=== PATIENT | female | born 1990 | race Caucasian/White ===

== ENCOUNTER 2016-10-26 18:24 | Emergency (ER) | payer BC ==
[~2016-10-26] VITALS: Ht 152.4 cm; Wt 76.2 kg
--- NOTE | ~2016-10-26 | CR281 ---
[facility] A Service of [facility] RADIOLOGY TEXT RESULTS PATIENT: CHAD RODRIGUEZ LOCATION: CFTX : [birth year] UNIT #: [id number] AGE: [address]: MARTINEZ WILKS APRN SEX: F ORDER DR: [id number] [facility] [address] [place], [place] [address] [id number] E MR#: [id number] Acc #: [id number] NAME: CHAD RODRIGUEZ. : 1990 SEX: F STUDY DATE/TIME: 10/26/2016 19:55 UNIT: [facility] ROOM: STUDY DESCRIPTION: CR Wrist Min 3 View Lt Attending Physician: Martinez Wilks Aprn Ordering Physician: Martinez Wilks Aprn Primary Care Physician: Carlos Neff MEDICAL IMAGING REPORT This report is preliminary unless electronic signature is present EXAM Left wrist 3 views HISTORY Wrist pain after injury today during martial arts. FINDINGS 3 views left wrist demonstrate oblique fracture of the distal radial metaphysis extending into the distal radioulnar joint with approximately 4 mm posterior displacement of the distal fracture fragment. No dislocation. No additional fracture. Dictated by... James Lazcano M.D. THIS IS AN ELECTRONICALLY VERIFIED REPORT James Lazcano M.D. at 10/27/2016 11:43 PM DFL/jacques TD: 10/27/2016 03:41 JOB #: [id number] MEDICAL IMAGING REPORT Page 1 of 1 COPY
[~2016-10-26 18:24] MED LIST: ORTHO-NOVUM1 TAB PO
== END 2016-10-26 21:10 | disposition home or self-care (01) ==
LOC: CFTX 18:24 → CED 18:24 → CFTX 20:24
DX: S52.502A Unspecified fracture of the lower end of left radius, initial encounter for closed fracture (principal); X58.XXXA Exposure to other specified factors, initial encounter; Y92.39 Other specified sports and athletic area as the place of occurrence of the external cause
CPT/HCPCS: 29125; 73110; 99283